=== PATIENT | female | born 1945 | race African-American/Black ===

== ENCOUNTER 2016-09-30 11:33 | Emergency (ER) | payer OTHER ==
[~2016-09-30] VITALS: Ht 172.7 cm; Wt 71.2 kg
--- NOTE | 2016-09-30 12:27 | RAD ---
Indication fall. AP oblique and lateral views of both wrists were obtained. Views of the left wrist demonstrate mild degenerative change. An acute finding is not seen. A catheter, presumably representing and IV, is noted on the dorsum Views of the right wrist demonstrate a traumatic, acute, impacted and moderately angulated fracture of the radial metaphysis. Associated distal ulnar fracture is also noted. IMPRESSION: Fractured right wrist. No acute finding involving the left breast
[2016-09-30] MEDS ORDERED: ONDANSETRON PF 4 MG/2 ML VIAL. IV ONE (12:30)
[2016-09-30] MEDS ORDERED: FENTANYL PF 100 MCG/2 ML VIAL. IV PRN (12:30)
[2016-09-30] MEDS ORDERED: LIDOCAINE 1% / SOD BICARB 8.4% 20 ML VIAL. IJ ONE (12:30)
--- NOTE | 2016-09-30 12:44 | PHYS DOC ---
Past Medical History Past Medical History: Arthritis Past Surgical History: No Surgical History Alcohol Use: None Drug Use: None Adult General Chief Complaint Chief Complaint: WRIST PAIN HPI HPI Patient is a 71 year old female who presents with complaint of bilateral wrist pain after suffering a fall prior to arrival. Patient states that she was exercising at the [facility] when she accidentally tripped and fell and tried to catch herself with both hands. Patient states that she is having 10 out of 10 pain in her right wrist and was noted to have an obvious deformity during triage. Patient also states that she is having pain in her left wrist but states that the pain is less and seems to be localized on her palm where she bruised herself. The patient was brought to the emergency department immediately after the fall. Patient has not taken any medications to help with symptoms. Patient denies any loss of feeling in her fingers at this time. Patient unable to move her right wrist secondary to pain. Review of Systems Review of Systems Constitutional: Denies fever or chills [] Eyes: Denies change in visual acuity, redness, or eye pain [] HENT: Denies nasal congestion or sore throat [] Respiratory: Denies cough or shortness of breath [] Cardiovascular: Denies chest pain or edema [] GI: Denies abdominal pain, nausea, vomiting, bloody stools or diarrhea [] : Denies dysuria or hematuria [] Musculoskeletal: Bilateral wrist pain [] Integument: Denies rash or skin lesions [] Neurologic: Denies headache, focal weakness or sensory changes [] Current Medications Current Medications Current Medications Medications (Trade) Dose Ordered Sig/Dawn Start Time Stop Time Status Last Admin Dose Admin Fentanyl Citrate (Fentanyl 2ml Vial) 50 mcg PRN Q15MIN PRN 09/30/16 12:30 09/30/16 14:34 DC 09/30/16 13:04 50 MCG Lidocaine/Sodium Bicarbonate (Buffered Lidocaine 1%) 20 ml 1X ONCE 09/30/16 12:30 09/30/16 12:33 DC 09/30/16 13:03 20 ML Neomycin/ Polymyxin/ Bacitracin (Triple Antibiotic Ointment) 1 pkt STK-MED ONCE 09/30/16 13:36 09/30/16 13:37 DC Ondansetron HCl (Zofran) 4 mg 1X ONCE 09/30/16 12:30 09/30/16 12:33 DC 09/30/16 13:03 4 MG Allergies Allergies Allergies Coded Allergies Type Severity Reaction Last Updated Verified No Known Drug Allergies 09/30/16 No Physical Exam Physical Exam Constitutional: Alert, afebrile, appears in moderate discomfort. [] HENT: Normocephalic, atraumatic, bilateral external ears normal, oropharynx moist, no oral exudates, nose normal. [] Eyes: PERRLA, EOMI, conjunctiva normal, no discharge. [] Neck: Normal range of motion, no tenderness, supple, no stridor. [] Cardiovascular:Heart rate regular rhythm, no murmur [] Lungs & Thorax: Bilateral breath sounds clear to auscultation [] Abdomen: Bowel sounds normal, soft, no tenderness, no masses, no pulsatile masses. [] Skin: Warm, dry, no erythema, no rash. [] Back: No tenderness, no CVA tenderness. [] Extremities: Mild ecchymosis present along left medial palm, tender for deformity to right wrist, range of motion not tested in right wrist, neurovascularly intact distal to injuries. [] Neurologic: Alert and oriented X 3, normal motor function, normal sensory function, no focal deficits noted. [] Current Patient Data Vital Signs Vital Signs Date Time Temp Pulse Resp B/P Pulse Ox O2 Delivery O2 Flow Rate FiO2 09/30/16 14:25 54 18 146/76 98 Room Air 09/30/16 11:33 98.3 98.3 EKG EKG Not performed [] Radiology/Procedures Radiology/Procedures [facility] [address] [place], [place] [id number] IMAGING REPORT Signed PATIENT: ZARIA ALAN ACCOUNT: [id number] : 1945 LOCATION: ER AGE: 71 SEX: F EXAM STATUS: PRE ER ORD. PHYSICIAN: SIM MURPHY MD REASON: FALL PROCEDURE: WRIST BILAT 3V Indication fall. AP oblique and lateral views of both wrists were obtained. Views of the left wrist demonstrate mild degenerative change. An acute finding is not seen. A catheter, presumably representing and IV, is noted on the dorsum Views of the right wrist demonstrate a traumatic, acute, impacted and moderately angulated fracture of the radial metaphysis. Associated distal ulnar fracture is also noted. IMPRESSION: Fractured right wrist. No acute finding involving the left breast DICTATED and SIGNED BY: RODRIGO TELLEZ MD DATE: 09/30/16 1221 CC: DARREN EMANUEL MD; SIM MURPHY MD ~ [] Course & Med Decision Making Course & Med Decision Making Pertinent Labs and Imaging studies reviewed. (See chart for details) The patient's wrist was reduced in the emergency department as outlined in the procedure note. The patient will be discharged with recommended follow-up within [address] Wolf of orthopedic surgery. Patient was prescribed [place] for pain. Advised return to emergency department for any worsening symptoms. Patient voiced understanding and in agreement with treatment plan. Dragon Disclaimer Dragon Disclaimer This electronic medical record was generated, in whole or in part, using a voice recognition dictation system. Joint Reduction Procedure Joint Indication: Right wrist fracture/dislocation Consent: Consent was obtained. Procedure: The pre-reduction exam showed distal perfusion and neurologic function to be normal.. The patient was placed in the appropriate position. Anesthesia/pain control was achieved through a hematoma block of the right wrist with buffered lidocaine 1%. Reduction of the wrist was performed by direct traction and manipulation. Post reduction films were obtained and revealed satisfactory reduction. A post-reduction exam revealed distal perfusion and neurologic function to be normal. The affected area was immobilized with a sugar tong splint applied by the emergency department senior environmental technician. My examination of the right hand post splint application showed normal capillary refill in all 5 digits and normal sensation. The patient tolerated the procedure well. Complications: none. Departure Departure Impression: Primary Impression: Fracture, Colles, right, closed Disposition: 01 HOME, SELF-CARE Condition: IMPROVED Referrals: RICHELLE WOLF II, MD Patient Instructions: Colles Fracture Additional Instructions: Follow-up with Dr. Wolf in the next 5 days. Return to the emergency department for any worsening symptoms. Scripts Hydrocodone/Apap 5-325 ([place] 5-325 Tablet)1 Each Tablet1-2 Tab PO Q4-6HRS PRN PAIN #40 TAB Prov:DARREN EMANUEL MD 09/30/16 Problem Qualifiers Primary Impression: Fracture, Colles, right, closed Encounter type: initial encounter Qualified Code: S52.531A - Colles' fracture of right radius, initial encounter for closed fracture DARREN EMANUEL MD Sep 30, 2016 12:44
[2016-09-30] MEDS ORDERED: NEOMY/BACITR/POLYMYXIN OINT PACKET. TP ONE (13:36)
--- NOTE | 2016-09-30 14:12 | RAD ---
Right wrist, 3 views, 09/30/2016, 1:56 PM: History: Postreduction evaluation Comparison is made to the study of earlier the same day. A partially radiopaque splint is in place. There is moderate residual dorsal displacement and angulation of the main distal fracture fragment at the site of the distal radial fracture. The distal ulnar fracture appears to be unchanged with mild impaction at the fracture site. IMPRESSION: Distal radial and ulnar fractures, essentially unchanged in position since earlier in the day.
[2016-09-30] MEDS ORDERED: HYDR-971 PO (14:13)
[2016-09-30 14:25] VITALS: BP 146/76
== END 2016-09-30 14:30 | disposition home or self-care (01) ==
LOC: ER 11:33
DX: S52.531A Colles' fracture of right radius, initial encounter for closed fracture (principal); S52.601A Unspecified fracture of lower end of right ulna, initial encounter for closed fracture; S60.222A Contusion of left hand, initial encounter; M19.90 Unspecified osteoarthritis, unspecified site; W01.0XXA Fall on same level from slipping, tripping and stumbling without subsequent striking against object, initial encounter; Y93.B9 Activity, other involving muscle strengthening exercises; Y92.89 Other specified places as the place of occurrence of the external cause; Y99.8 Other external cause status
CPT/HCPCS: 25605; 73110; 96374; 96375; 99284; J2405; J3010

== ENCOUNTER 2016-10-08 10:01 | Day surgery (SDC) | payer OTHER ==
[~2016-10-08 10:01] MED LIST: BUPIVACAINE MPF 0.5% 30 ML VIAL. ONE; CALC-98 PO; CHOL10003 PO; DICL100G7 TP; DOCU100C5 PO; FENTANYL PF 100 MCG/2 ML VIAL. IV PRN; HYDR-971 PO; IV RINGERS,LACTATED 1000ML 1,000 ML IV SCH; LIDOCAINE 1% 1 ML SYRINGE. ID PRN; LIDOCAINE 1% 20 ML VIAL. ONE; MELA3TAB PO; MORPHINE SULFATE 2 MG/ML DISP.SYRIN. IV PRN; ONDA4TAB7 PO; ONDANSETRON PF 4 MG/2 ML VIAL. IV PRN; PROCHLORPERAZINE 10 MG/2 ML VIAL. IV PRN; RANI150C PO
[2016-10-08] MEDS ORDERED: DEXAMETHASONE SOD PHOS 20 MG/5 ML VIAL. ONE (10:30)
[2016-10-08] MEDS ORDERED: PROPOFOL 20 ML IV ONE (10:30)
[2016-10-08] MEDS ORDERED: FAMOTIDINE 20 MG/2 ML VIAL ONE (10:30)
[2016-10-08] MEDS ORDERED: ONDANSETRON PF 4 MG/2 ML VIAL. ONE (10:30)
[2016-10-08] MEDS ORDERED: LIDOCAINE 2% 100 MG/5 ML SYRINGE. ONE (10:31)
--- NOTE | 2016-10-08 10:54 | EKG ---
[facility] [address] [place] [address] Test Date: 2016-10-08 Test Time: 10:52:58 Pat Name: ZARIA ALAN Department: Room: Gender: F Ophthalmic Medical Technician: TV : 1945 Requested By: ARIC MUNGUIA Order Number: [id number] Reading MD: Lino Broussard Measurements Intervals [place] Rate: 77 P: 56 TX: 144 QRS: 28 QRSD: 72 T: -1 QT: 380 QTc: 432 Interpretive Statements SINUS RHYTHM ATRIAL PREMATURE COMPLEX(ES) Electronically Signed On 10-08-2016 15:07:51 CDT by Lino Broussard
[2016-10-08] MEDS ORDERED: FENTANYL PF 100 MCG/2 ML VIAL. ONE (11:36)
[2016-10-08] MEDS ORDERED: ROCURONIUM 50 MG/5 ML VIAL. ONE (11:36)
[2016-10-08] MEDS ORDERED: PHENYLEPHRINE in 0.9% NACL PF 1 MG/10 ML DISP.SYRIN. IV ONE (11:54)
[2016-10-08] MEDS ORDERED: NEOSTIGMINE METHYLSULFATE 5 MG/5 ML SYRINGE. ONE (12:33)
[2016-10-08] MEDS ORDERED: GLYCOPYRROLATE 1 MG/5 ML VIAL. ONE (12:33)
[2016-10-08] MEDS ORDERED: EPHEDRINE PF IN SALINE 50 MG/5 ML DISP.SYRIN. IV ONE (12:39)
--- NOTE | 2016-10-08 12:50 | PDOC ---
BRIEF OPERATIVE NOTE Date: Oct 08, 2016 Pre-Op Diagnosis Closed R DR arellano Post-Op Diagnosis same Procedure Performed ORIF R DR arellano Surgeon Linette [employer] Ebs Developer Nati Anesthesia Type: General, Local Blood Loss 25mL Complications none RICHELLE WOLF II, MD Oct 08, 2016 12:50
--- NOTE | 2016-10-08 12:51 | DISCH ---
DISCHARGE INSTRUCTIONS Condition on Discharge Condition on Discharge: Stable Activity After Discharge Activity Instructions for Disc: Other, see below Bathing Instructions: Shower-keep dressing dry Weight Bearing Status after Di: Non weight bearing Diet after Discharge Diet after Discharge: Regular Wound Incision Care Wound/Incision Care: Ice to area for comfort, Keep wound/cast CDI, Keep wound elevated, Do not change dressing Contacting the DRRojas after DC Call your doctor for: Concerns you may have Follow-Up Follow up with: Sanjiv barahona 2wks RICHELLE WOLF II, MD Oct 08, 2016 12:51
[2016-10-08] MEDS ORDERED: SEVOFLURANE 61 TO 120 MINUTES. IH ONE (12:52)
[2016-10-08] MEDS: FENTANYL PF 100 MCG/2 ML VIAL. IV PRN ×4 (13:17→13:47)
[2016-10-08] MEDS: HYDROmorphone 2 MG/ML VIAL IV PRN ×4 (14:03→14:40)
[2016-10-08 14:36] VITALS: BP 155/80
--- NOTE | 2016-10-08 16:08 | OP ---
DATE OF SURGERY: 10/08/2016 SURGEON: Bakari Wolf MD SCIENCE INTERN: Nury Damian. ANESTHESIA: General plus local anesthetic. PREOPERATIVE DIAGNOSIS: Displaced malangulated closed right distal radius fracture, extraarticular. POSTOPERATIVE DIAGNOSIS: Displaced malangulated closed right distal radius fracture, extraarticular. PROCEDURE PERFORMED: Open reduction and internal fixation of right distal radius fracture. COMPONENTS INSERTED: [employer]ocha [employer]hew standard width volar distal radius locking plate. TOURNIQUET TIME: 39 minutes. ESTIMATED BLOOD LOSS: 25 mL. REASON FOR PROCEDURE: The patient is a very pleasant 71-year-old female who sustained a fall onto an outstretched right upper extremity, was seen by myself and my nurse practitioner, Sander, in clinic. Because of her level of function and this being her dominant hand, we had a discussion of risks, benefits, alternatives to proceeding with the above procedure based on the fracture deformity. Given her dorsal involvement, I did not think a closed reduction and closed treatment alone would suffice. She agreed to proceed. DESCRIPTION OF PROCEDURE: The patient was greeted in the preoperative area by myself. Correct extremity was marked and verified. She was taken to the operative suite and antibiotics were started en route. Once in the OR, she was transferred gently supine to the OR table and secured to the bed with all pressure points padded and, after successful induction of general anesthetic, we attached an arm board to her right side and then placed a nonsterile tourniquet to her right arm as well. After this, we proceeded to prep and drape the right upper extremity in our usual sterile fashion and conducted our standard preoperative timeout. I then palpated, marked her surface anatomy including radial artery and FCR tendon and then varghese a line from my skin incision. We then exsanguinated the extremity with an Esmarch and insufflated the tourniquet to 250 mmHg. I then incised the skin and dissected the subcutaneous tissue with tenotomies. I used bipolar cautery to cauterize bleeders as they were encountered. I identified the fascia and incised this in line with the skin incision. I then bluntly dissected down to the pronator quadratus and took this off with needle tip electrocautery. I then used a brown handled, round-tipped, periosteal elevator to prepare the volar distal radius to receive my plate. I then used a combination of a metal tip sucker, a small curette and a Nakina elevator to debride the fracture site after re-creating the deformity a little bit to hinge it open. After this, I then used a Nakina to gently level a little bit back into position after I had re-created the fracture deformity and performed a reduction maneuver with traction through the radial column. I then provisionally pinned this into place and then took my AP, oblique, and lateral images and felt I had good reduction. I therefore placed the plate against the bone and sized and positioned my plate and then pinned this into place. I then placed two nonlocking screws through the distal column, confirming extraarticular placement under triplanar fluoroscopic imaging. This secured the plate to the bone distal to the fracture site. I then filled the remainder of the holes with the exception of one over the ulnar column with locking screws and then traded out the nonlocking screws for locking screws. After this, I then levered the plate back into position against bone and then secured it with nonlocking screws x 3 to secure the plate to the shaft. I then took my final images, confirming appropriate hardware position and fracture reduction. I then removed my K-wires and irrigated out the operative field with sterile normal saline. We then let the tourniquet down and cauterized a couple of venous bleeders. She had a good radial pulse in hand, pinked up well with good capillary refill in her nailbeds. I then reapproximated the pronator quadratus with a zxhwky-zf-nfhoz 2-0 Vicryl. Inverted interrupted 2-0 was used for the subcutaneous tissue and 2-0 nylon in mattress fashion was used for skin. She tolerated surgery well. After closing the skin, I injected approximately 5 mL of a local anesthetic mixture into the elinor-incisional area confirming extravascular placement. The arm and wrist were then cleansed and dried. Steri-Strips, Xeroform, sterile dressing, sterile cast padding were then applied followed by a well-padded sugar-tong splint. She tolerated surgery well. No complications. Prior to completion of wound closure, all counts were reported correct x 2. At the conclusion of surgery, she was awakened from anesthesia, transferred gently supine to the recovery room cart and taken to PACU in stable and extubated condition. Postop plan is to remain in the splint and keep it clean and dry. She is to be discharged home, nonweightbearing. She will follow up with my nurse practitioner in 2 weeks, sooner should problems arise. BAKARI WOLF MD DR: MARIAH/leta JOB#: [id number] / [id number] JASON
== END 2016-10-08 15:40 | disposition home or self-care (01) ==
LOC: SURG 10:01
PROVIDERS: ATTEND Orthopaedic Surgery Sports Medicine
DX: S52.551A Other extraarticular fracture of lower end of right radius, initial encounter for closed fracture (principal); X58.XXXA Exposure to other specified factors, initial encounter; Y93.9 Activity, unspecified; Y92.9 Unspecified place or not applicable; Y99.9 Unspecified external cause status; K21.9 Gastro-esophageal reflux disease without esophagitis; M19.90 Unspecified osteoarthritis, unspecified site; Z87.39 Personal history of other diseases of the musculoskeletal system and connective tissue
CPT/HCPCS: 25607; 76000; 93005; J0690; J1100; J1170; J2370; J2405; J2704; J2710; J3010; J3490; S0028; C1713; J0780; J7120

== ENCOUNTER → 2016-11-26 | Outpatient (CLI) | payer OTHER ==
[~2016-11-26] MED LIST changes: -BUPIVACAINE MPF 0.5% 30 ML VIAL. ONE; +DICL100G18 TP; -DICL100G7 TP; +DOCU100C28 PO; -DOCU100C5 PO; -FENTANYL PF 100 MCG/2 ML VIAL. IV PRN; -IV RINGERS,LACTATED 1000ML 1,000 ML IV SCH; -LIDOCAINE 1% 1 ML SYRINGE. ID PRN; -LIDOCAINE 1% 20 ML VIAL. ONE; -MELA3TAB PO; +MELA3TAB2 PO; -MORPHINE SULFATE 2 MG/ML DISP.SYRIN. IV PRN; -ONDANSETRON PF 4 MG/2 ML VIAL. IV PRN; -PROCHLORPERAZINE 10 MG/2 ML VIAL. IV PRN
--- NOTE | 2016-11-26 14:30 | CARD ---
APPROVED REPORT EXAM: Two-dimensional and M-mode echocardiogram with Doppler and color Doppler. Other Information Quality : GoodHR: 75bpm INDICATION Murmur 2D DIMENSIONS RVDd3.5 (2.9-3.5cm)Left Atrium(2D)3.1 (1.6-4.0cm) IVSd0.9 (0.7-1.1cm)Aortic Root(2D)2.8 (2.0-3.7cm) LVDd4.2 (3.9-5.9cm)LVOT Diameter1.9 (1.8-2.4cm) PWd0.8 (0.7-1.1cm)LVDs3.0 (2.5-4.0cm) FS (%) 29.6 %SV45.2 ml LVEF(%)57.0 (>50%) Aortic Valve AoV Peak Jakob.108.8cm/sAoV VTI22.1cm AO Peak GR.4.7mmHgLVOT Peak Jakob.71.4cm/s LVOT VTI 16.38cmAO Mean GR.3mmHg CARLIE (VMAX)1.42jj0AHE (VTI)2.11cm2 Mitral Valve MV E Herfgzmt86.7cm/sMV DECEL JAZO149nm MV A Wcpzkhea13.7cm/sMV VJN79hv E/A Ratio0.8MV A Pfjstyoz305rg MVA (PHT)2.94cm2 TDI E/Lateral E'7.0E/Medial E'8.5 Pulmonary Valve PV Peak Enskmpye12.5cm/sPV Peak Grad.2mmHg Tricuspid Valve TR P. Scnlcucs709jf/sRAP PSFAAPFL5uxMh TR Peak Gr.41jrOeTTAT49egXg LEFT VENTRICLE The left ventricle is normal size. There is borderline concentric left ventricular hypertrophy. The l eft ventricular systolic function is normal. The Ejection Fraction is 55-60%. There is normal LV segm ental wall motion. Transmitral Doppler flow pattern is Grade I-abnormal relaxation pattern. RIGHT VENTRICLE The right ventricle is normal size. The right ventricular systolic function is normal. ATRIA The left atrium size is normal. The right atrium is mildly dilated. The interatrial septum is intact with no evidence for an atrial septal defect or patent foramen ovale as noted on 2-D or Doppler imagi ng. AORTIC VALVE The aortic valve is mildly sclerotic. Doppler and Color Flow revealed trace aortic regurgitation. The re is no significant aortic valvular stenosis. MITRAL VALVE The mitral valve is mildly thickened but opens well. Mitral annular calcification is borderline. Ther e is no mitral valve stenosis. Doppler and Color Flow revealed mild mitral regurgitation. TRICUSPID VALVE The tricuspid valve is normal in structure. Doppler and Color Flow revealed mild tricuspid regurgitat ion. There is mild pulmonary hypertension. The PA pressure was estimated at 35 mmHg. PULMONIC VALVE The pulmonary valve is normal in structure and function. Doppler and Color Flow revealed mild pulmoni c valvular regurgitation. GREAT VESSELS The aortic root is normal in size. The ascending aorta is normal in size. The IVC is normal in size a nd collapses >50% with inspiration. PERICARDIAL EFFUSION There is no evidence of significant pericardial effusion. Critical Notification Critical Value: No <Conclusion> The left ventricular systolic function is normal. The Ejection Fraction is 55-60%. There is normal LV segmental wall motion. Transmitral Doppler flow pattern is Grade I-abnormal relaxation pattern. Mild mitral regurgitation. Mild tricuspid regurgitation. There is mild pulmonary hypertension. There is no evidence of significant pericardial effusion.
== END | disposition home or self-care (01) ==
LOC: ECHO 12:51
PROVIDERS: ATTEND Internal Medicine
DX: I08.1 Rheumatic disorders of both mitral and tricuspid valves (principal); I27.2 Other secondary pulmonary hypertension
CPT/HCPCS: 93306

== ENCOUNTER 2020-05-21 11:54 | Emergency (ER) | payer MEDICARE, OTHER ==
[~2020-05-21] VITALS: Ht 172.7 cm; Wt 75.0 kg
[~2020-05-21 11:54] MED LIST changes: -DICL100G18 TP; +DICL100G54 TP; +HYDR-3164 PO; -HYDR-971 PO; -MELA3TAB2 PO; +MELA3TAB4 PO
--- NOTE | 2020-05-21 12:14 | PHYS DOC ---
Past Medical History Past Medical History: Arthritis Past Surgical History: No Surgical History Smoking Status: Never Smoker Alcohol Use: None Drug Use: None General Adult EDM: Chief Complaint: SHOULDER INJURY HPI: HPI: Patient is a 74 year old female who arrives with chief complaint of right shoulder pain. Patient had a mechanical fall in the parking lot at [employer] and landed on her right shoulder. Patient did not hit her head or have loss of consciousness. Patient complains of isolated shoulder and proximal humerus pain. Pain is moderate in severity and worse with range of motion and and better after taking 2 Tylenol prior to arrival. Patient denies any focal weakness or numbness. Pain is described as a discomfort. Review of Systems: Review of Systems: Constitutional: Denies fever or chills. [] Eyes: Denies change in visual acuity. [] HENT: Denies nasal congestion or sore throat. [] Respiratory: Denies cough or shortness of breath. [] Cardiovascular: Denies chest pain or edema. [] GI: Denies abdominal pain, nausea, vomiting, bloody stools or diarrhea. [] : Denies dysuria. [] Musculoskeletal: Denies back pain but has right shoulder pain Integument: Denies rash. [] Neurologic: Denies headache, focal weakness or sensory changes. [] Endocrine: Denies polyuria or polydipsia. [] Lymphatic: Denies swollen glands. [] Psychiatric: Denies depression or anxiety. [] Heart Score: Risk Factors: Risk Factors: DM, Current or recent (<one month) smoker, HTN, HLP, family history of CAD, obesity. Risk Scores: Score 0 - 3: 2.5% MACE over next 6 weeks - Discharge Home Score 4 - 6: 20.3% MACE over next 6 weeks - Admit for Clinical Observation Score 7 - 10: 72.7% MACE over next 6 weeks - Early Invasive Strategies Allergies: Allergies: Allergies Coded Allergies Type Severity Reaction Last Updated Verified No Known Drug Allergies 10/08/16 No Physical Exam: PE: Constitutional: Well developed, well nourished, no acute distress, non-toxic appearance. [] HENT: Normocephalic, atraumatic, bilateral external ears normal, no trismus nose normal. [] Eyes: PERRLA, EOMI, conjunctiva normal, no discharge. [] Neck: Normal range of motion, no tenderness, supple, no stridor. [] Cardiovascular:Heart rate regular rhythm, peripheral pulses intact cap refill is brisk Lungs & Thorax: Bilateral breath sounds clear no respiratory distress Abdomen: Soft and nondistended Skin: Warm, dry, no erythema, no rash. [] Back: No tenderness, no CVA tenderness. [] Extremities: Tenderness to the right shoulder and proximal humerus, limited range of motion due to pain.. Neurovascular intact distally. Neurologic: Alert and oriented X 3, normal motor function, normal sensory function, no focal deficits noted. [] Psychologic: Affect normal, judgement normal, mood normal. [] EKG: EKG: [] Radiology/Procedures: Radiology/Procedures: [][facility] [address] [place], [place] [id number] IMAGING REPORT Signed PATIENT: ZARIA ALAN ACCOUNT: [id number] : 1945 LOCATION: ER AGE: 74 SEX: F EXAM STATUS: PRE ER ORD. PHYSICIAN: MARY KAY LUJAN MD REASON: FALL, SHOULDER INJURY/ PAINFUL TO MOVE PROCEDURE: SHOULDER 2+V RIGHT Examination: SHOULDER 2+V RIGHT, HUMERUS RIGHT History: Reason: FALL, SHOULDER INJURY/ PAINFUL TO MOVE / Spl. Instructions: / History: Comparison/Correlation: None Findings: 3 images of the right shoulder and 3 images of the right humerus were obtained. Oblique fracture through the right humeral neck is present with angulation. Displaced fracture involving the greater tuberosity noted. No joint dislocation. The acromioclavicular joint is unremarkable. Mid to distal right humerus is normal. Right lung field is unremarkable. Right ribs are intact. Impression: Comminuted, displaced fractures of the right humeral neck and greater tuberosity with attenuation Electronically signed by: Abhijeet Giron MD (05/21/2020 12:57 PM) [id number] DICTATED and SIGNED BY: ABHIJEET GIRON MD DATE: 05/21/20 [id number] 0 Course & Med Decision Making: Course & Med Decision Making Pertinent Labs and Imaging studies reviewed. (See chart for details) [] 74-year-old female presents with mechanical fall and right humeral head fracture. Discussed the case with Dr. French who agrees to see the patient follow-up. Shoulder immobilizer has been placed by nursing staff. I examined the patient after application and she is neurovascular intact distally. [place] Disclaimer: [place] Disclaimer: This electronic medical record was generated, in whole or in part, using a voice recognition dictation system. Departure Departure Impression: Primary Impression: Fracture of humeral head, right, closed Disposition: 01 DC HOME SELF CARE/HOMELESS Condition: STABLE Referrals: DEYVI BECKWITH MD (PCP) VALERIANO MALHOTRA MD 2-3 DAYS Patient Instructions: Shoulder Fracture, Shoulder Immobilizer Additional Instructions: EMERGENCY DEPARTMENT GENERAL DISCHARGE INSTRUCTIONS THANK YOU for coming to [facility] (ED) today and trusting us with your care. We trust that you had a positive experience in our Emergency Department. If you wish to speak to the department Management you can contact the emergency department at . YOUR FOLLOW UP INSTRUCTIONS ARE FOLLOWS: Do you have a private doctor? If you do not have a private doctor, please ask for a resource list of physicians or clinics that may be able to assist you with follow up care. The Emergency Physician has interpreted your x-rays. The X-ray specialist will also review them. If there is a change in the findings you will be notified in 48 hours when at all possible. A lab test or lab culture may have been done, your results will be reviewed and you will be notified if you need a change in treatment. ADDITIONAL INSTRUCTIONS AND INFORMATION Your care today has been supervised by a physician who is specially trained in emergency care. Many problems require more than one evaluation for a complete diagnosis and treatment. We recommend that you schedule your follow up appointment as recommended to ensure complete treatment of your illness or injury. If you are unable to obtain follow up care and continue to have a problem, or if your condition worsens we recommend that you return to the ED. We are not able to safely determine your condition over the phone nor are we able to give sound medical advice over the phone. For these safety reasons, if you call for medical advice we will ask you to come to the ED for further evaluation If you have any questions regarding these discharge instructions please call the ED at . SAFETY INFORMATION In the interest of safety, wellness, and injury prevention; we encourage you to wear your seatbelt, if you smoke; quit smoking, and we encourage your family to use protective helmet for bicycling and other sporting events that present an increased risk for head injury. IF YOUR SYMPTOMS WORSEN OR NEW SYMPTOMS DEVELOP, OR YOU HAVE CONCERNS ABOUT YOUR CONDITION; OR IF YOUR CONDITION WORSENS WHILE YOU ARE WAITING FOR YOUR FOLLOW UP APPOINTMENT; EITHER CONTACT YOUR PRIMARY CARE DOCTOR, THE PHYSICIAN WHOSE NAME AND NUMBER YOU WERE GIVEN, OR RETURN TO THE ED IMMEDIATELY. Scripts Hydrocodone/Apap 5-325 (NORCO 5-325 TABLET) 1 Each Tablet 1-2 EACH PO PRN Q6HRS PRN for PAIN, #15 as needed for pain Prov: MRAY KAY LUJAN MD 05/21/20 MARY KAY LUJAN MD May 21, 2020 12:14
--- NOTE | 2020-05-21 13:01 | RAD ---
Examination: SHOULDER 2+V RIGHT, HUMERUS RIGHT History: Reason: FALL, SHOULDER INJURY/ PAINFUL TO MOVE / Spl. Instructions: / History: Comparison/Correlation: None Findings: 3 images of the right shoulder and 3 images of the right humerus were obtained. Oblique fracture through the right humeral neck is present with angulation. Displaced fracture involving the greater tuberosity noted. No joint dislocation. The acromioclavicular joint is unremarkable. Mid to distal right humerus is normal. Right lung field is unremarkable. Right ribs are intact. Impression: Comminuted, displaced fractures of the right humeral neck and greater tuberosity with attenuation Electronically signed by: Abhijeet Snell MD (05/21/2020 12:57 PM) [id number]
[2020-05-21] MEDS ORDERED: HYDR-3164 PO (13:43)
[2020-05-21 14:14] VITALS: BP 134/80
== END 2020-05-21 13:50 | disposition home or self-care (01) ==
LOC: ER 11:54
DX: S42.291A Other displaced fracture of upper end of right humerus, initial encounter for closed fracture (principal); W18.39XA Other fall on same level, initial encounter; Y93.89 Activity, other specified; Y92.481 Parking lot as the place of occurrence of the external cause; Y99.8 Other external cause status
CPT/HCPCS: 29105; 73030; 73060; 99284; A4565; 29505

== ENCOUNTER 2020-05-31 07:09 | Day surgery (SDC) | payer MEDICARE ==
[~2020-05-31] VITALS: Ht 171.4 cm; Wt 77.0 kg
[~2020-05-31 07:09] MED LIST changes: +ASCO500C PO; +FAMO-63 PO; +HYDROmorphone 2 MG/ML VIAL IV PRN; +IBUP-1027 PO; +IV RINGERS,LACTATED 1000ML 1,000 ML IV SCH; +LIDOCAINE 1% PF 2 ML VIAL. ID PRN; +MORPHINE SULFATE 2 MG/ML VIAL. IV PRN; +ONDANSETRON PF 4 MG/2 ML VIAL. IV PRN; +PROCHLORPERAZINE 10 MG/2 ML VIAL. IV PRN; +ceFAZolin SODIUM IV Push 1 GM VIAL. IVP PRN; +fentaNYL PF VIAL 100 MCG/2 ML VIAL IV PRN; +tumeric
[2020-05-31] MEDS ORDERED: BUPIVACAINE-EPI 0.25%-1:200000 MPF 30 ML VIAL. INJ ONE (08:00)
[2020-05-31] MEDS ORDERED: ROPIVacaine 0.5% PF 20 ML VIAL. ONE (08:05)
[2020-05-31] MEDS ORDERED: MIDAZOLAM HCL/PF 2 MG/2 ML VIAL. ONE (08:06)
[2020-05-31] MEDS ORDERED: fentaNYL PF VIAL 100 MCG/2 ML VIAL ONE (08:06)
[2020-05-31 08:16] LABS: BASO % 1 % (0-3); EOS % 1 % (0-3); HEMOGLOBIN 12.6 g/dL (12.0-15.5); LYMPH # 1.1 x10^3/uL (1.0-4.8); LYMPH % 20 % (24-48); MEAN CORPUSCULAR HEMOGLOBIN 31 pg (25-35); MEAN CORPUSCULAR HGB CONC 34 g/dL (31-37); MEAN CORPUSCULAR VOLUME 91 fL (79-100); MONO # 0.5 x10^3/uL (0.0-1.1); MONO % 9 % (0-9); NEUT # 3.9 x10^3/uL (1.8-7.7); NEUT % 70 % (31-73); PLATELET COUNT 343 x10^3/uL (140-400); RED BLOOD COUNT 4.08 x10^6/uL (3.50-5.40); WHITE BLOOD COUNT 5.5 x10^3/uL (4.0-11.0)
[2020-05-31] MEDS ORDERED: DEXAMETHASONE SOD PHOS 20 MG/5 ML VIAL. ONE (08:21)
[2020-05-31 08:39] LABS: CALCIUM 9.4 mg/dL (8.5-10.1); CREATININE 0.8 mg/dL (0.6-1.0); GFR 84.8; POTASSIUM 3.6 mmol/L (3.5-5.1)
[2020-05-31] MEDS ORDERED: ROCURONIUM 50 MG/5 ML VIAL. ONE (08:59)
[2020-05-31] MEDS ORDERED: OXYC-316 PO (09:27)
--- NOTE | 2020-05-31 09:29 | DISCH ---
DISCHARGE INSTRUCTIONS Condition on Discharge Condition on Discharge: Stable Activity After Discharge Activity Instructions for Disc: Other, see below (Gentle reaching and motion below shoulder level as long as not painful) Bathing Instructions: Shower-keep dressing dry Weight Bearing Status after Di: Non weight bearing (Sling as necessary for comfort) Diet after Discharge Diet after Discharge: Regular Wound Incision Care Wound/Incision Care: Ice to area for comfort, Change dressing (May remove dressing in 3 days may shower if no drainage) Contacting the [facility] after DC Call your doctor for: Concerns you may have Follow-Up Follow up with: Dr. Grossman 10 days ELIECER GROSSMAN MD May 31, 2020 09:29
[2020-05-31] MEDS ORDERED: PHENYLEPHRINE in 0.9% NACL PF 1 MG/10 ML SYRINGE. IV ONE (09:33)
[2020-05-31] MEDS ORDERED: ONDANSETRON PF 4 MG/2 ML VIAL. ONE (09:33)
[2020-05-31] MEDS ORDERED: DEXAMETHASONE SOD PHOS 4 MG/ML VIAL ONE (09:33)
[2020-05-31] MEDS ORDERED: PHENYLEPHRINE 10 MG/ML VIAL. ONE ×2 (10:03)
[2020-05-31] MEDS ORDERED: VANCOMYCIN 1 GM VIAL. ONE (11:03)
[2020-05-31] MEDS ORDERED: GLYCOPYRROLATE 1 MG/5 ML VIAL. ONE (11:13)
[2020-05-31] MEDS ORDERED: SEVOFLURANE > 120 MINUTES. IH ONE (11:13)
[2020-05-31] MEDS ORDERED: NEOSTIGMINE METHYLSULFATE 5 MG/5 ML SYRINGE. ONE (11:13)
[2020-05-31] MEDS ORDERED: oxyCODONE/APAP 7.5/325 1 TAB TABLET PO ONE (12:00)
[2020-05-31 12:14] VITALS: BP 161/60
--- NOTE | 2020-05-31 15:15 | PDOC4 ---
Operative Note Operative Note Date of surgery:05/31/2020 Preoperative diagnosis: Displaced right proximal humerus fracture Postoperative diagnosis: Same Operative procedure: Operative reduction internal fixation 3 part right proximal humerus fracture with locking plate and screw fixation Surgeon: Chauncey Anesthesia: General plus interscalene block Estimated blood loss: 150 cc Complications: None Operative indications: Please see my orthopedic clinic notes for detailed operative indications and rationale and note that we covered the possibility of infection nerve or blood vessel damage nonhealing continued pain stiffness even under the best circumstances of healing among others all her questions were answered she wishes to proceed with surgical evaluation and treatment having given informed consent Operative text: Patient was identified procedure verified patient placed in the supine position on the operating table. After adequate amounts of general anesthesia were administered plus a pre-existing scalene block, the patient was placed in the [employer]-Max headrest in beachchair position and the right upper extremity was prepped and draped in standard sterile fashion. After timeout was performed patient procedure identified and verified a deltopectoral incision was made cephalic vein and deltoid were taken laterally clavipectoral fascia was divided and the distal insertion of the deltoid was bluntly elevated to decrease tension on the deltoid. She was noted to have a completely displaced 3 part proximal humerus fracture with the shaft dissociated from the head fragments. After thorough irrigation carried out normal saline solution reduction was carried out under fluoroscopic guidance and a Mega Alps proximal humerus plate high version was placed on the shaft with a nonlocking screw in the sliding hole and under fluoroscopic guidance a guidewire was advanced to the center of the humeral head with reduction carried out. After verification of the placement of the guidewire locking cancellous screws were placed from a superior to inferior fashion and additional locking shaft screws were placed for additional fixation. All hardware placement and fracture reduction were checked under multiple fluoroscopic views and found to be excellent. The irrigation carried out normal saline solution subcutaneous closure with buried Vicryl suture skin closure with sridhar. Sterile dressings were applied patient was returned to recovery room in stable condition having tolerated procedure well. ELIECER SPRINGER MD May 31, 2020 15:15
== END 2020-05-31 13:00 | disposition home or self-care (01) ==
LOC: SURG 07:09
PROVIDERS: ATTEND Orthopaedic Surgery
DX: S42.351A Displaced comminuted fracture of shaft of humerus, right arm, initial encounter for closed fracture (principal); S42.251A Displaced fracture of greater tuberosity of right humerus, initial encounter for closed fracture; Z20.828 Contact with and (suspected) exposure to other viral communicable diseases; E11.9 Type 2 diabetes mellitus without complications; I10 Essential (primary) hypertension; E78.5 Hyperlipidemia, unspecified; F17.210 Nicotine dependence, cigarettes, uncomplicated; W18.39XA Other fall on same level, initial encounter; Y93.89 Activity, other specified; Y92.89 Other specified places as the place of occurrence of the external cause; Y99.8 Other external cause status
CPT/HCPCS: 24505; 36415; 64450; 80048; 85025; 87426; C1713; C9803; J0690; J1100; J2250; J2370; J2405; J2710; J2795; J3010; J3370; J3490; J7120; U0003; 76000